=== PATIENT | male | born 1965 | race Caucasian/White ===

== ENCOUNTER 2021-08-09 17:38 | Observation (INO) | payer BC, SELFPAY ==
--- NOTE | 2021-08-09 17:40 | ECG_ITS ---
[facility] Test Date: 2021-08-09 Pat Name: DONAVON SUMMERS Department: Room: Gender: Male [employer] Dean: : 1965 Requested By: Sweetie Stinson Order Number: [id number] Frankel MD: Mendoza Akins M.D. Measurements Intervals [place] Rate: P: TX: QRS: QRSD: T: QT: QTc: Interpretive Statements SINUS TACHYCARDIA No previous ECG available for comparison Electronically Signed On 08-09-2021 21:01:55 CDT by Mendoza Akins M.D. [id number]
--- NOTE | 2021-08-09 17:40 | XRR_ITS ---
PROCEDURE INFORMATION: Exam: XR Chest Exam date and time: 08/09/2021 5:40 PM Age: 56 years old Clinical indication: Pain; Chest pressure; Additional info: Chest pain TECHNIQUE: Imaging protocol: XR of the chest. Views: 1 view. COMPARISON: No relevant prior studies available. FINDINGS: Lungs: Unremarkable. No consolidation. Pleural spaces: Unremarkable. No pleural effusion. No pneumothorax. Heart/Mediastinum: Unremarkable. No cardiomegaly. Bones/joints: Unremarkable. XR/XR chest 1V portable [id number] IMPRESSION: No acute findings.
[2021-08-09 17:43] VITALS: TEMP 37.7; BMI 38.7
--- NOTE | 2021-08-09 17:49 | W.ED.GENADLT ---
Documented by User: Sweetie Stinson MD 08/10/21 11:08 HPI - General Adult General: Chief complaint: Chest Pain Stated complaint: CHEST PAIN Time Seen by Provider: 08/09/21 17:40 History of Present Illness: Patient is a 56-year-old male with a history of CAD status post stent x1 presents emergency room with generalized weakness, abdominal aches and chest pain. Patient tells me around 1030 this morning, he began experiencing generalized abdominal cramps. Patient has 2 episodes of nausea without any emesis. Patient report mild diaphoresis since 3 PM, patient has had right sided chest pain radiating towards the left. Patient still complains of persistent chest pain subsequently EMS was brought to the emergency room. Patient still has generalized body ache. Patient thinks that may have come down with a flu. Patient reports 2 episodes of loose stool. Denies any vomiting or decreased p.o. intake. 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 Denies any pleuritic chest pain, hemoptysis, hematemesis. Patient denies any melena hematochezia or other complaints at this time. In route, patient received 1 dose of nitro which significantly decreased patient's blood pressure. Patient received also aspirin and fentanyl for pain control by EMS. Onset: at 10:30am Duration: 7 hrs Location:home Severity:moderate Associated symptoms: Reports chest pain and nausea; Deny dyspnea, rash, palpitations or vomiting Review of Systems Const: Reports: other (+generalized weakness); Denies: fever(s) or chills Eyes: Denies: change in vision ENMT: Denies: mouth pain Card: Reports: chest pain; Denies: palpitations Resp: Denies: dyspnea or non-productive cough GI: Reports: abdominal pain and nausea; Denies: vomiting or diarrhea : Denies: dysuria Musc: Denies: extremity pain Skin/Breast: Denies: rash or new lesions Neuro: Denies: weakness in extremities Psych: Reports: other (Normal mood) Cliff/Lymph: Denies: easy bruising PFS ED PFSH: Medical History (Updated 08/11/21 @ 00:00 by ) Acute non-ST elevation myocardial infarction (NSTEMI) CAD (coronary artery disease) Chest pain DM type 2 (diabetes mellitus, type 2) Gastroenteritis Generalized weakness Injury of left rotator cuff Ketonuria Nausea NSAID long-term use Sepsis Troponin level elevated Surgical History History of coronary artery stent placement Physical Exam Const: COMMON NORMALS: alert HENMT: COMMON NORMALS: atraumatic HEAD & SCALP: atraumatic MOUTH: moist mucous membranes not abnormal Eye: COMMON NORMALS: EOMs intact bilaterally and conjunctivae normal CONJUNCTIVA: Yes conjunctivae normal Neck/C-Spine: COMMON NORMALS: full ROM and supple Resp: COMMON NORMALS: normal respiratory effort and clear to auscultation bilaterally AUSCULTATION: clear to auscultation bilaterally Cardio: COMMON NORMALS: regular rate RATE: regular rate GI: COMMON NORMALS: Soft to palpation and non-tender PALPATION: Yes Soft to palpation Extremity: COMMON NORMALS: full ROM Neuro: SENSORIUM/ORIENTATION: Yes alert MOTOR EXAM: No Abnormal motor strength present and Other motor observations present (no focal motor deficits) Psych: COMMON NORMALS: speech normal SPEECH: Yes normal speech MOOD & AFFECT: Yes euthymic mood Course Vital Signs: Vital signs: Vital Signs Temperature 98.1 F 08/10/21 14:23 Pulse Rate 82 08/10/21 14:23 Respiratory Rate 18 08/10/21 14:23 Blood Pressure 109/68 08/10/21 14:23 Pulse Oximetry 96 08/10/21 14:23 [facility] - General Adult Medical Decision Making 56-year-old male presenting to the emergency room for evaluation of abdominal cramps, generalized body ache, and chest pain. On physical exam, patient has no focal findings. 2+ radial pulses bilaterally. Patient not actively complaining of chest pain. White count of 18.9. No baseline leukocytosis for comparison. Patient did not take any prednisone or has chronic issues. Patient is also found to have mild anion gap on blood work. CT x-ray of the chest negative for any signs of pneumonia. CT abdomen pelvis did not show any signs of acute pathology. D-dimer within normal limit. It is unclear what the source of leukocytosis. Case signed out to Dr. Foley pending Covid and influenza and reassessment Lab Data : 08/10/21 03:45 08/10/21 03:45 Radiology Impressions Chest X-Ray 08/09/21 19:08 IMPRESSION: Lungs are clear. Abdomen/Pelvis CT 08/09/21 19:56 IMPRESSION: 1. Fatty liver 2. Other chronic findings as described above. Laboratory Results WBC 18.9 10^3/uL (4.0-10.0) H 08/09/21 17: RBC 5.50 10^6/uL (4.1-5.3) H 08/09/21 17:30 Hgb 15.9 g/dL (11.7-16.6) 08/09/21 17: Hct 46.9 % (42.0-52.0) 08/09/21: MCV 85.3 fl (80-94) 08/09/21: MCH 28.9 pg (28.0-34.0) 08/09/21: MCHC 33.9 g/dL (30.0-36.0) 08/09/21: RDW 12.5 % (12.1-15.1) 08/09/21: Plt Count 234 10^3/cmm (130-400) 08/09/21: MPV 11.4 fL (7.4-10.4) H 08/09/21 17: Neut % (Auto) 93.1 % 08/09/21 17: Lymph % (Auto) 3.5 % 08/09/21 17: [place] % (Auto) 2.6 % 08/09/21: Eos % (Auto) 0.1 % 08/09/21: Baso % (Auto) 0.3 % 08/09/21: Neut # (Auto) 17.60 10^3/uL (1.8-7.7) H 08/09/21 17: Lymph # (Auto) 0.7 10^3/uL (0.8-4.8) L 08/09/21 17:30 [place] # (Auto) 0.5 10^3/uL (0.2-0.9) 08/09/21 17: Eos # (Auto) 0.0 10^3/uL (0.0-0.8) 08/09/21 17: Baso # (Auto) 0.1 10^3/uL (0.0-0.1) 08/09/21 17: Nucleated RBC % (auto) 0 % 03/14/22 17:30 Nucleated RBCs # 0.0 /100WBC 08/09/21 17:30 D-Dimer 0.29 ug/mIFEU (0-0.59) 08/09/21 17:30 Sodium 137 mmol/L (136-145) 08/09/21 17:30 Sodium Cancelled 08/09/21 17:30 Potassium 4.6 mmol/L (3.5-5.1) 08/09/21 17:30 Potassium Cancelled 08/09/21 17:30 Chloride 101 mmol/L (98-107) 08/09/21 17:30 Chloride Cancelled 08/09/21 17:30 Carbon Dioxide 17 mmol/L (22-29) L 08/09/21 17:30 Carbon Dioxide Cancelled 08/09/21 17:30 Anion Gap 23.6 (5-19) H 08/09/21 17:30 Anion Gap Cancelled 08/09/21 17:30 BUN 24 mg/dL (6-20) H 08/09/21 17:30 BUN Cancelled 08/09/21 17:30 Creatinine 1.0 mg/dL (0.7-1.2) 08/09/21 17:30 Creatinine Cancelled 08/09/21 17:30 GFR Calculation 77.0 mL/min (90-130) L 08/09/21 17:30 GFR Calculation Cancelled 08/09/21 17:30 Glucose 286 mg/dL (65-115) H 08/09/21 17:30 Glucose Cancelled 08/09/21 17:30 Estimat Average Glucose 180 08/09/21 17:30 Hemoglobin A1c 7.9 % (4.0-6.0) H 08/09/21 17:30 Calculated Osmolality 298 mOsm/kg (285-295) H 08/09/21 17:30 Calculated Osmolality Cancelled 08/09/21 17:30 Lactic Acid 1.8 mmol/L (0.5-2.2) 08/09/21 23:18 Calcium 9.0 mg/dL (8.5-10.5) 08/09/21 17:30 Calcium Cancelled 08/09/21 17:30 Total Bilirubin 0.9 mg/dL (0.15-1.2) 08/09/21 17:30 AST 19 U/L (0-40) 08/09/21 17:30 ALT 27 U/L (0-41) 08/09/21 17:30 Alkaline Phosphatase 48 IU/L (40-130) 08/09/21 17:30 Creatine Kinase 217 U/L (39-308) 08/09/21 23:18 Troponin T Baseline 9 ng/L (0-15) 08/09/21 17:30 Troponin T 120 Minute 15.22 ng/L (0-15) H 08/09/21 20:50 Delta Troponin T 6.22 ABS# (0-10) 08/09/21 20:50 Troponin T Hi Sens 6Hr 23.89 ng/L (0-15) H 08/09/21 23:18 Troponin T Hi Sens 6Hr Delta 14.89 ng/L (0-12) H* 08/09/21 23:18 Total Protein 7.2 g/dL (6.6-8.7) 08/09/21 17:30 Albumin 4.4 g/dL (3.5-5.2) 08/09/21 17:30 Globulin 2.8 g/dL (1.3-4.6) 08/09/21 17:30 Lipase 48 U/L (13-60) 08/09/21 17:30 Urine Color Yellow (Yellow) 08/09/21 18:51 Urine Appearance Clear (CLEAR) 08/09/21 18:51 Urine pH 5 (5-7) 08/09/21 18:51 Ur Specific [place] 1.020 (1.005-1.030) 08/09/21 18:51 Urine Protein Neg (Negative) 08/09/21 18:51 Urine Glucose (UA) 4+ (Normal) H 08/09/21 18:51 Urine Ketones 1+ (Negative) H 08/09/21 18:51 Urine Blood Neg (Negative) 08/09/21 18:51 Urine Nitrate Negative (Negative) 08/09/21 18:51 Urine Bilirubin Neg (Negative) 08/09/21 18:51 Urine Urobilinogen Norm mg/dL (Negative) 08/09/21 18:51 Ur Leukocyte Esterase Negative (Negative) 08/09/21 18:51 Nasal Influ A H1 2008 PCR Not detected (NOT DETECT) 08/09/21 17:52 Serum Ketones Negative (Negative) 08/09/21 23:18 Coronavirus 229E (PCR) Not detected (NOT DETECT) 08/09/21 17:52 Influenza A (H1) PCR Not detected (NOT DETECT) 08/09/21 17:52 Influenza A (H3) PCR Not detected (NOT DETECT) 08/09/21 17:52 Influenza Type A (PCR) Not detected (NOT DETECT) 08/09/21 17:52 Influenza Type B (PCR) Not detected (NOT DETECT) 08/09/21 17:52 SARS-CoV-2 (PCR) Not detected (NOT DETECT) 08/09/21 17:52 Imaging Data Other Imaging: Radiologist's impression: [facility] [address] [address] [address] Scan Report Signed Patient: Jorge Zazueta Unit #: [id number] : 1965 Age/Sex: 56 / M ADM Date: 08/09/21 Loc: ER Room/Bed: Attending Dr: Ordering Provider/Ordering MD: Sweetie Stinson MD Date of Service: 08/09/21 Procedure(s): CT abdomen pelvis w con* [id number] Accession Number(s): [id number] Report Number: [id number] PROCEDURE INFORMATION: Exam: CT Abdomen And Pelvis With Contrast Exam date and time: 08/09/2021 7:56 PM Age: 56 years old Clinical indication: Abdominal pain; Prior surgery; Surgery date: 6+ months; Surgery type: Appy; Patient HX: Epigastric pain x 1 day; Additional info: Eval for infection TECHNIQUE: Imaging protocol: Computed tomography of the abdomen and pelvis with contrast. Radiation optimization: All CT scans at this facility use at least one of these dose optimization techniques: automated exposure control; mA and/or kV adjustment per patient size (includes targeted exams where dose is matched to clinical indication); or iterative reconstruction. Contrast material: OMNI 300; Contrast volume: 95 ml; Contrast route: INTRAVENOUS (IV);? COMPARISON: CR (CHEST, ) 08/09/2021 6:26 PM RADIATION DOSE METRICS: Total DLP (mGy-cm): 2016.78 FINDINGS: Lungs: There is calcified granuloma in the right lower lobe. Liver: There is a diffuse decrease in hepatic parenchymal density, consistent with mild fatty infiltration. There is no focal abnormality within the liver. Gallbladder and bile ducts: The gallbladder is normal. Pancreas: The pancreas is normal. Spleen: The spleen is normal. Adrenal glands: The adrenal glands are normal. Kidneys and ureters: The kidneys are normal. There is no evidence of hydronephrosis. There is no evidence of renal or ureteral calcifications. Stomach and bowel: Moderate diverticulosis is present in the distal colon. There is no evidence of colitis/diverticulitis. Appendix: There has been an appendectomy. Intraperitoneal space: There is no evidence of free intraperitoneal fluid. Vasculature: Incidental note is made of a retroaortic left renal vein. The aorta is normal. The aorta demonstrates mild atherosclerotic calcification. There is no evidence of an abdominal aortic aneurysm. Lymph nodes: There is no evidence of lymphadenopathy. Urinary bladder: Unremarkable as visualized. Reproductive: Unremarkable as visualized. Bones/joints: Multilevel lumbar stenosis. The lumbar spine demonstrates moderate degenerative changes at multiple levels. Soft tissues: There is a small umbilical hernia containing only fat. CT/CT abdomen pelvis w con* [id number] IMPRESSION: 1. Fatty liver 2. Other chronic findings as described above. ? Dictated By: Donavan Smith Signed By: Donavan Smith Signed Date/Time: 08/09/212134 DD/ [address] [address] XRay Report Signed Patient: Jorge Zazueta Unit #: [id number] : 1965 Age/Sex: 56 / M ADM Date: 08/09/21 Loc: ER Room/Bed: Attending Dr: Ordering Provider/Ordering MD: Sweetie Stinson MD Date of Service: 08/09/21 Procedure(s): XR chest 2V* [id number] Accession Number(s): [id number] Report Number: [id number] PROCEDURE INFORMATION: Exam: XR Chest Exam date and time: 08/09/2021 7:08 PM Age: 56 years old Clinical indication: Angina; Additional info: Please do a 2 view chest TECHNIQUE: Imaging protocol: XR of the chest. Views: 2 views. COMPARISON: CR (CHEST, ) 08/09/2021 4:53 PM FINDINGS: Lungs: Right lower lobe calcified granuloma. Pleural spaces: Unremarkable. No pleural effusion. No pneumothorax. Heart/Mediastinum: Unremarkable. No cardiomegaly. Bones/joints: Unremarkable. XR/XR chest 2V* [id number] IMPRESSION: Lungs are clear. ? Dictated By: Jorge Trevizo MD Signed By: Jorge Trevizo MD Signed Date/Time: 08/09/21 1937 DD/ [address] [address] XRay Report Signed Patient: Jorge Zazueta Unit #: [id number] : 1965 Age/Sex: 56 / M ADM Date: 08/09/21 Loc: ER Room/Bed: Attending Dr: Ordering Provider/Ordering MD: Sweetie Stinson MD Date of Service: 08/09/21 Procedure(s): XR chest 1V portable [id number] Accession Number(s): [id number] Report Number: [id number] PROCEDURE INFORMATION: Exam: XR Chest Exam date and time: 08/09/2021 5:40 PM Age: 56 years old Clinical indication: Pain; Chest pressure; Additional info: Chest pain TECHNIQUE: Imaging protocol: XR of the chest. Views: 1 view. COMPARISON: No relevant prior studies available. FINDINGS: Lungs: Unremarkable. No consolidation. Pleural spaces: Unremarkable. No pleural effusion. No pneumothorax. Heart/Mediastinum: Unremarkable. No cardiomegaly. Bones/joints: Unremarkable. XR/XR chest 1V portable [id number] IMPRESSION: No acute findings. ? Dictated By: Jorge Trevizo MD Signed By: Jorge Trevizo MD Signed Date/Time: 08/09/21 1834 DD/ 1740 Discharge Plan Discharge Patient Disposition: Placed in Observation Admit Provider: Luis Huntley Clinical Impression: Generalized weakness, Chest pain, Nausea, Acute non-ST elevation myocardial infarction (NSTEMI) Discharge Diet: Cardiac Discharge Activity: Increase activity as tolerated Sign Out Sign Out Data: Patient Sign Out occurred on 08/09/21 at 23:24. Patient's care was discussed, and care was transferred from to Sulaiman Foley MD. Post-Handoff Eval: See MDM Coding Level of Care Code ED Landscape Architecture Teacher for Chg Fwd Exam Comprehensive Documented by User: Sulaiman Foley MD 08/13/21 07:56 HPI - General Adult General: Chief complaint: Chest Pain Stated complaint: CHEST PAIN Time Seen by Provider: 08/09/21 17:40 [facility] ED PFSH: Medical History (Updated 08/11/21 @ 00:00 by ) Acute non-ST elevation myocardial infarction (NSTEMI) CAD (coronary artery disease) Chest pain DM type 2 (diabetes mellitus, type 2) Gastroenteritis Generalized weakness Injury of left rotator cuff Ketonuria Nausea NSAID long-term use Sepsis Troponin level elevated Surgical History History of coronary artery stent placement Course Vital Signs: Vital signs: Vital Signs Temperature 98.1 F 08/10/21 14:23 Pulse Rate 82 08/10/21 14:23 Respiratory Rate 18 08/10/21 14:23 Blood Pressure 109/68 08/10/21 14:23 Pulse Oximetry 96 08/10/21 14:23 [facility] - General Adult Medical Decision Making 56-year-old male presenting to the emergency room for evaluation of abdominal cramps, generalized body ache, and chest pain. On physical exam, patient has no focal findings. 2+ radial pulses bilaterally. Patient not actively complaining of chest pain. White count of 18.9. No baseline leukocytosis for comparison. Patient did not take any prednisone or has chronic issues. Patient is also found to have mild anion gap on blood work. CT x-ray of the chest negative for any signs of pneumonia. CT abdomen pelvis did not show any signs of acute pathology. D-dimer within normal limit. It is unclear what the source of leukocytosis. Case signed out to Dr. Foley pending Covid and influenza and reassessment - Patient care handoff received from Dr. Stinson. I personally saw and evaluated the patient. - Very mixed picture regarding labs and I did follow-up on additional laboratory studies. Lactate is normal and serum ketones normal. The patient's 6-hour delta troponin is 14.89 which is above the cutoff concerning for NSTEMI. - Aspirin given - Discussed the results of ED evaluation with the patient including need for hospitalization for further assessment of heart. - Discussed case with hospitalist service and patient to be admitted to observation. At his request additionally I did order a VBG. Sulaiman Foley MD Emergency Medicine Lab Data : 08/10/21 03:45 08/10/21 03:45 Radiology Impressions Chest X-Ray 08/09/21 19:08 IMPRESSION: Lungs are clear. Abdomen/Pelvis CT 08/09/21 19:56 IMPRESSION: 1. Fatty liver 2. Other chronic findings as described above. Laboratory Results WBC 18.9 10^3/uL (4.0-10.0) H 08/09/21 17:30 RBC 5.50 10^6/uL (4.1-5.3) H 08/09/21 17:30 Hgb 15.9 g/dL (11.7-16.6) 08/09/21 17:30 Hct 46.9 % (42.0-52.0) 08/09/21 17:30 MCV 85.3 fl (80-94) 08/09/21 17:30 MCH 28.9 pg (28.0-34.0) 08/09/21 17:30 MCHC 33.9 g/dL (30.0-36.0) 08/09/21 17:30 RDW 12.5 % (12.1-15.1) 08/09/21 17:30 Plt Count 234 10^3/cmm (130-400) 08/09/21 17:30 MPV 11.4 fL (7.4-10.4) H 08/09/21 17:30 Neut % (Auto) 93.1 % 08/09/21 17:30 Lymph % (Auto) 3.5 % 08/09/21 17:30 [place] % (Auto) 2.6 % 08/09/21 17:30 Eos % (Auto) 0.1 % 08/09/21 17: Baso % (Auto) 0.3 % 08/09/21 17:30 Neut # (Auto) 17.60 10^3/uL (1.8-7.7) H 08/09/21 17:30 Lymph # (Auto) 0.7 10^3/uL (0.8-4.8) L 08/09/21 17:30 [place] # (Auto) 0.5 10^3/uL (0.2-0.9) 08/09/21 17:30 Eos # (Auto) 0.0 10^3/uL (0.0-0.8) 08/09/21 17:30 Baso # (Auto) 0.1 10^3/uL (0.0-0.1) 08/09/21 17:30 Nucleated RBC % (auto) 0 % 08/09/21 17: Nucleated RBCs # 0.0 /100WBC 08/09/21 17:30 D-Dimer 0.29 ug/mIFEU (0-0.59) 08/09/21 17:30 Sodium 137 mmol/L (136-145) 08/09/21 17:30 Sodium Cancelled 08/09/21 17:30 Potassium 4.6 mmol/L (3.5-5.1) 08/09/21 17:30 Potassium Cancelled 08/09/21 17:30 Chloride 101 mmol/L (98-107) 08/09/21 17:30 Chloride Cancelled 08/09/21 17:30 Carbon Dioxide 17 mmol/L (22-29) L 08/09/21 17:30 Carbon Dioxide Cancelled 08/09/21 17:30 Anion Gap 23.6 (5-19) H 08/09/21 17:30 Anion Gap Cancelled 08/09/21 17:30 BUN 24 mg/dL (6-20) H 08/09/21 17:30 BUN Cancelled 08/09/21 17:30 Creatinine 1.0 mg/dL (0.7-1.2) 08/09/21 17:30 Creatinine Cancelled 08/09/21 17:30 GFR Calculation 77.0 mL/min (90-130) L 08/09/21 17:30 GFR Calculation Cancelled 08/09/21 17:30 Glucose 286 mg/dL (65-115) H 08/09/21 17:30 Glucose Cancelled 08/09/21 17:30 Estimat Average Glucose 180 08/09/21 17:30 Hemoglobin A1c 7.9 % (4.0-6.0) H 08/09/21 17:30 Calculated Osmolality 298 mOsm/kg (285-295) H 08/09/21 17:30 Calculated Osmolality Cancelled 08/09/21 17:30 Lactic Acid 1.8 mmol/L (0.5-2.2) 08/09/21 23:18 Calcium 9.0 mg/dL (8.5-10.5) 08/09/21 17:30 Calcium Cancelled 08/09/21 17:30 Total Bilirubin 0.9 mg/dL (0.15-1.2) 08/09/21 17:30 AST 19 U/L (0-40) 08/09/21 17:30 ALT 27 U/L (0-41) 08/09/21 17:30 Alkaline Phosphatase 48 IU/L (40-130) 08/09/21 17:30 Creatine Kinase 217 U/L (39-308) 08/09/21 23:18 Troponin T Baseline 9 ng/L (0-15) 08/09/21 17:30 Troponin T 120 Minute 15.22 ng/L (0-15) H 08/09/21 20:50 Delta Troponin T 6.22 ABS# (0-10) 08/09/21 20:50 Troponin T Hi Sens 6Hr 23.89 ng/L (0-15) H 08/09/21 23:18 Troponin T Hi Sens 6Hr Delta 14.89 ng/L (0-12) H* 08/09/21 23:18 Total Protein 7.2 g/dL (6.6-8.7) 08/09/21 17:30 Albumin 4.4 g/dL (3.5-5.2) 08/09/21 17:30 Globulin 2.8 g/dL (1.3-4.6) 08/09/21 17:30 Lipase 48 U/L (13-60) 08/09/21 17:30 Urine Color Yellow (Yellow) 08/09/21 18:51 Urine Appearance Clear (CLEAR) 08/09/21 18:51 Urine pH 5 (5-7) 08/09/21 18:51 Ur Specific [place] 1.020 (1.005-1.030) 08/09/21 18:51 Urine Protein Neg (Negative) 08/09/21 18:51 Urine Glucose (UA) 4+ (Normal) H 08/09/21 18:51 Urine Ketones 1+ (Negative) H 08/09/21 18:51 Urine Blood Neg (Negative) 08/09/21 18:51 Urine Nitrate Negative (Negative) 08/09/21 18:51 Urine Bilirubin Neg (Negative) 08/09/21 18:51 Urine Urobilinogen Norm mg/dL (Negative) 08/09/21 18:51 Ur Leukocyte Esterase Negative (Negative) 08/09/21 18:51 Nasal Influ A H1 2009 PCR Not detected (NOT DETECT) 08/09/21 17:52 Serum Ketones Negative (Negative) 08/09/21 23:18 Coronavirus 229E (PCR) Not detected (NOT DETECT) 08/09/21 17:52 Influenza A (H1) PCR Not detected (NOT DETECT) 08/09/21 17:52 Influenza A (H3) PCR Not detected (NOT DETECT) 08/09/21 17:52 Influenza Type A (PCR) Not detected (NOT DETECT) 08/09/21 17:52 Influenza Type B (PCR) Not detected (NOT DETECT) 08/09/21 17:52 SARS-CoV-2 (PCR) Not detected (NOT DETECT) 08/09/21 17:52 Discharge Plan Discharge Patient Disposition: Placed in Observation Admit Provider: Luis Huntley Clinical Impression: Generalized weakness, Chest pain, Nausea, Acute non-ST elevation myocardial infarction (NSTEMI) Discharge Diet: Cardiac Discharge Activity: Increase activity as tolerated Sign Out Sign Out Data: Patient Sign Out occurred on 08/09/21 at 23:24. Patient's care was discussed, and care was transferred from to Sulaiman Foley MD. Post-Handoff Eval: See MDM Coding Level of Care Code ED Landscape Architecture Teacher for Chg Fwd Exam Comprehensive
[2021-08-09 17:51] VITALS: BP 100/67; PULSE 107; RESP 16; TEMP 37.7; O2SAT 93
[2021-08-09 17:57] LABS: Basophils # 0.1 10^3/uL (0.0-0.1); Basophils % 0.3 %; Eosinophils % 0.1 %; Hematocrit 46.9 % (42.0-52.0); Hemoglobin 15.9 g/dL (11.7-16.6); Lymphocytes # 0.7 10^3/uL (0.8-4.8); Lymphocytes % 3.5 %; Mean Corpuscular HGB Conc 33.9 g/dL (30.0-36.0); Mean Corpuscular Hemoglobin 28.9 pg (28.0-34.0); Mean Corpuscular Volume 85.3 fl (80-94); Mean Platelet Volume 11.4 fL (7.4-10.4); Monocytes # 0.5 10^3/uL (0.2-0.9); Monocytes % 2.6 %; Neutrophils % 93.1 %; Nucleated Red Blood Cells % 0 %; Platelet Count 234 10^3/cmm (130-400); Red Cell Distribution Width 12.5 % (12.1-15.1); White Blood Count 18.9 10^3/uL (4.0-10.0)
[2021-08-09] MEDS: sodium chloride 0.9% 1,000 ML 999 ML IV (18:02)
[2021-08-09] MEDS: ondansetron 2 mg/ML SDV 2 mL 4 MG IVP (18:02)
[2021-08-09 18:30] LABS: Troponin(5th) Baseline 9 ng/L (0-15)
[2021-08-09 18:55] LABS: D Dimer 0.29 ug/mIFEU (0-0.59)
[2021-08-09 19:04] LABS: Add Urine Microscopic? NO; Charge for UA Resulting for Rev
--- NOTE | 2021-08-09 19:08 | XRR_ITS ---
PROCEDURE INFORMATION: Exam: XR Chest Exam date and time: 08/09/2021 7:08 PM Age: 56 years old Clinical indication: Angina; Additional info: Please do a 2 view chest TECHNIQUE: Imaging protocol: XR of the chest. Views: 2 views. COMPARISON: CR (CHEST, ) 08/09/2021 4:53 PM FINDINGS: Lungs: Right lower lobe calcified granuloma. Pleural spaces: Unremarkable. No pleural effusion. No pneumothorax. Heart/Mediastinum: Unremarkable. No cardiomegaly. Bones/joints: Unremarkable. XR/XR chest 2V* [id number] IMPRESSION: Lungs are clear.
[2021-08-09 19:09] LABS: Bilirubin Urine Neg (Negative); Blood Urine Neg (Negative); Glucose Urine UA 4+ (Normal); Ketones Urine 1+ (Negative); Leukocyte Esterase Urine Negative (Negative); Nitrate Urine Negative (Negative); Protein Urine Neg (Negative); Urine Appearance Clear (CLEAR); Urine Color Yellow (Yellow); Urobilinogen Urine Norm (Negative); pH Urine 5 (5-7)
[2021-08-09 19:17] LABS: Alanine Aminotransferase 27 U/L (0-41); Albumin Level 4.4 g/dL (3.5-5.2); Aspartate Amino Transferase 19 U/L (0-40); Carbon Dioxide 17 mmol/L (22-29); Total Bilirubin 0.9 mg/dL (0.15-1.2)
[2021-08-09 19:18] LABS: Alkaline Phosphatase 48 IU/L (40-130); Anion Gap 23.6 (5-19); Blood Urea Nitrogen 24 mg/dL (6-20); Chloride 101 mmol/L (98-107); Globulin 2.8 g/dL (1.3-4.6); Glucose 286 mg/dL (65-115); Lipase 48 U/L (13-60); Osmolality Calculated 298 mOsm/kg (285-295); Potassium 4.6 mmol/L (3.5-5.1); Sodium 137 mmol/L (136-145); Total Protein 7.2 g/dL (6.6-8.7)
--- NOTE | 2021-08-09 19:40 | ECG_ITS ---
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 Measurements Intervals [place] Rate: 98 P: 46 AK: 167 QRS: 68 QRSD: 94 T: 84 QT: 332 QTc: 425 Interpretive Statements SINUS RHYTHM NONSPECIFIC T-WAVE ABNORMALITY Compared to ECG 08/09/2021 16:50:05 T-wave abnormality now present Electronically Signed On 08-09-2021 21:11:51 CDT by Mendoza Akins M.D. [id number]
--- NOTE | 2021-08-09 19:56 | CTR_ITS ---
PROCEDURE INFORMATION: Exam: CT Abdomen And Pelvis With Contrast Exam date and time: 08/09/2021 7:56 PM Age: 56 years old Clinical indication: Abdominal pain; Prior surgery; Surgery date: 6+ months; Surgery type: Appy; Patient HX: Epigastric pain x 1 day; Additional info: Eval for infection TECHNIQUE: Imaging protocol: Computed tomography of the abdomen and pelvis with contrast. Radiation optimization: All CT scans at this facility use at least one of these dose optimization techniques: automated exposure control; mA and/or kV adjustment per patient size (includes targeted exams where dose is matched to clinical indication); or iterative reconstruction. Contrast material: OMNI 300; Contrast volume: 95 ml; Contrast route: INTRAVENOUS (IV); COMPARISON: CR (CHEST, ) 08/09/2021 6:26 PM RADIATION DOSE METRICS: Total DLP (mGy-cm): 2016.78 FINDINGS: Lungs: There is calcified granuloma in the right lower lobe. Liver: There is a diffuse decrease in hepatic parenchymal density, consistent with mild fatty infiltration. There is no focal abnormality within the liver. Gallbladder and bile ducts: The gallbladder is normal. Pancreas: The pancreas is normal. Spleen: The spleen is normal. Adrenal glands: The adrenal glands are normal. Kidneys and ureters: The kidneys are normal. There is no evidence of hydronephrosis. There is no evidence of renal or ureteral calcifications. Stomach and bowel: Moderate diverticulosis is present in the distal colon. There is no evidence of colitis/diverticulitis. Appendix: There has been an appendectomy. Intraperitoneal space: There is no evidence of free intraperitoneal fluid. Vasculature: Incidental note is made of a retroaortic left renal vein. The aorta is normal. The aorta demonstrates mild atherosclerotic calcification. There is no evidence of an abdominal aortic aneurysm. Lymph nodes: There is no evidence of lymphadenopathy. Urinary bladder: Unremarkable as visualized. Reproductive: Unremarkable as visualized. Bones/joints: Multilevel lumbar stenosis. The lumbar spine demonstrates moderate degenerative changes at multiple levels. Soft tissues: There is a small umbilical hernia containing only fat. CT/CT abdomen pelvis w con* [id number] IMPRESSION: 1. Fatty liver 2. Other chronic findings as described above.
[2021-08-09] MEDS: iohexol 300 mg/mL 100 mL Btl IV (20:39)
[2021-08-09 20:46] VITALS: BP 107/71; PULSE 97; RESP 16; TEMP 37.2; O2SAT 95
[2021-08-09 21:16] LABS: Troponin 5 2HR 15.22 ng/L (0-15)
[2021-08-09 21:17] LABS: Troponin 5 2HR Delta 6.22 ABS# (0-10)
[2021-08-09 23:28] LABS: Adenovirus Not Detected (NOT DETECT); Chlamydia Pneumoniae Not Detected (NOT DETECT); Coronavirus 229E,HKU1,NL63,OC4 Not Detected (NOT DETECT); Human Metapneumovirus Not Detected (NOT DETECT); Human Rhinovirus/Enterovirus Not Detected (NOT DETECT); Influenza A Not Detected (NOT DETECT); Influenza A H1 Not Detected (NOT DETECT); Influenza A H1-2009 Not Detected (NOT DETECT); Influenza A H3 Not Detected (NOT DETECT); Influenza B Not Detected (NOT DETECT); Mycoplasma Pneumoniae Not Detected (NOT DETECT); Parainfluenza Virus Type 1 Not Detected (NOT DETECT); Parainfluenza Virus Type 2 Not Detected (NOT DETECT); Parainfluenza Virus Type 3 Not Detected (NOT DETECT); Parainfluenza Virus Type 4 Not Detected (NOT DETECT); Respiratory Syncytial Virus A Not Detected (NOT DETECT); Respiratory Syncytial Virus B Not Detected (NOT DETECT); SARS-COV-2 Not Detected (NOT DETECT)
[2021-08-09 23:34] LABS: Influenza A Not Detected (NOT DETECT); Influenza A H1 Not Detected (NOT DETECT); Influenza A H1-2009 Not Detected (NOT DETECT); Influenza A H3 Not Detected (NOT DETECT); Influenza B Not Detected (NOT DETECT); Results from Genmark
--- NOTE | 2021-08-09 23:40 | ECG_ITS ---
[facility] Test Date: 2021-08-09 Pat Name: Jorge Zazueta Department: Room: Gender: Male [employer] K[employer] Runner: : 1965 Requested By: Sweetie Stinson Order Number: [id number] Frankel MD: Mendoza Akins M.D. Measurements Intervals [place] Rate: 100 P: 38 MS: 154 QRS: 66 QRSD: 90 T: 83 QT: 334 QTc: 432 Interpretive Statements SINUS TACHYCARDIA NONSPECIFIC T-WAVE ABNORMALITY Compared to ECG 08/09/2021 19:38:40 Sinus rhythm no longer present T-wave abnormality still present Electronically Signed On 08-11-2021 20:29:15 CDT by Mendoza Akins M.D. [email or web address]
[2021-08-09 23:43] LABS: Troponin 5 6HR 23.89 ng/L (0-15)
[2021-08-09 23:46] LABS: Lactic Sepsis W/Reflex 1.8 mmol/L (0.5-2.2)
[2021-08-09 23:54] LABS: Ketone (Acetest) Serum Negative (Negative)
[2021-08-09 23:55] LABS: Troponin 5 6HR Delta 14.89 ng/L (0-12)
[2021-08-10] VITALS (7 sets, daily range): BP systolic 99–110; BP diastolic 68–73; PULSE 82–95; RESP 10–18; TEMP 36.7–37.2; O2SAT 94–96; BMI 39.0
[2021-08-10] MEDS: aspirin 81 mg Chew Tablet 324 MG PO (00:24)
[2021-08-10 01:35] LABS: Creatine Phosphokinase 217 U/L (39-308)
[2021-08-10 02:19] LABS: Estmated Average Glucose 180; Hemoglobin A1C 7.9 % (4.0-6.0)
--- NOTE | 2021-08-10 02:26 | PM.HP ---
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 He then experienced pain across his chest, sharp, with some radiation to the left arm. Received nitroglycerin in route with decrease in blood pressure. Chest discomfort mild initially in ER. Currently completely resolved. In ER noted troponin abnormality, baseline normal, 2-hour 15.22, 6-hour 23.89. EKG with sinus rhythm, sinus tachycardia 91-107. At presentation temp 99.9 Fahrenheit. D-dimer normal at 0.29. Noted leukocytosis 18.9. Chest x-ray unremarkable. CT abdomen pelvis showed fatty liver, chronic findings (see full report). PCR flu and COVID-19 negative. Other significant labs include bicarb 17, anion gap 23.6, BUN 24, glucose 286. He says he did not take his diabetes medication today as was concerned about the GI symptoms. Urine with 4+ glucose, 1+ ketones. Serum ketones negative. Reports since arriving to the room has had several more episodes of diarrhea. Reports he ate a broccoli salad with creamy dressing he bought at [facility] yesterday. Review of Systems Const: Denies: fever(s), chills, body aches or malaise Eyes: Denies: change in vision or eye redness ENMT: Denies: throat pain, oral sores or ear or mastoid pain Card: Reports: chest pain; Denies: edema, pre-syncope or dyspnea on exertion Resp: Denies: dyspnea, productive cough, change in phlegm color or hemoptysis GI: Reports: nausea, heartburn, diarrhea and GI cramping; Denies: abdominal pain, constipation, hematochezia or melena : Denies: flank pain, difficulty urinating, urinary frequency or hematuria Musc: Denies: back pain, joint swelling or joint redness Skin/Breast: Denies: rash, sores or new lesions Neuro: Denies: headache(s), numbness in extremities, weakness in extremities, dizziness, confusion or seizure-like activity Endo: Denies: polyuria or polydipsia Cliff/Lymph: Denies: easy bleeding or purpura All/Imm: Denies: urticaria, throat swelling or tongue swelling Medications/Allergies Home Medications Medication Instructions Recorded Confirmed Last Taken Type ascorbic acid (vitamin C) 1,000 mg 500 mg PO BID 08/09/21 08/09/21 08/09/21 History tablet (Vitamin C) aspirin 81 mg tablet,delayed 81 mg PO DAILY 08/09/21 08/09/21 08/09/21 History release cholecalciferol (vitamin D3) 25 25 mcg PO DAILY 08/09/21 08/09/21 08/09/21 History mcg (1,000 unit) capsule (Vitamin D3) glimepiride 2 mg tablet 2 mg PO BID 08/09/21 08/09/21 08/09/21 History multivitamin with iron-mineral 1 tab PO DAILY 08/09/21 08/09/21 08/09/21 History nitroglycerin 0.4 mg sublingual 0.4 mg SUBLINGUAL Q5MIN PRN 08/09/21 08/09/21 08/09/21 History tablet pantoprazole 40 mg tablet,delayed 40 mg PO DAILY 08/09/21 08/09/21 08/09/21 History release rosuvastatin 10 mg tablet 10 mg PO DAILY 08/09/21 08/09/21 08/08/21 History sulindac 200 mg tablet 200 mg PO BID 08/09/21 08/09/21 08/09/21 History thiamine HCl (vitamin B1) 250 mg 250 mg PO DAILY 08/09/21 08/09/21 08/09/21 History tablet (Vitamin B-1) valsartan 160 mg tablet 160 mg PO DAILY 08/09/21 08/09/21 08/09/21 History zinc 50 mg tablet 50 mg PO DAILY 08/09/21 08/09/21 08/09/21 History Allergies Allergy/AdvReac Type Severity Reaction Status Date / Time acetaminophen [From NyQuil] Allergy ALGY-Difficulty Verified 08/10/21 01:41 Breathing dextromethorphan Allergy ALGY-Difficulty Verified 08/10/21 01:41 [From NyQuil] Breathing doxylamine [From NyQuil] Allergy ALGY-Difficulty Verified 08/10/21 01:41 Breathing pseudoephedrine [From NyQuil] Allergy ALGY-Difficulty Verified 08/10/21 01:41 Breathing PFSH Acute PFSH: Medical History (Updated 08/10/21 @ 02:34 by Luis Huntley MD) CAD (coronary artery disease) DM type 2 (diabetes mellitus, type 2) Injury of left rotator cuff Surgical History History of coronary artery stent placement Vitals/I&O/Wt Last Vital Signs Temp 99.0 F 08/10/21 01:45 Pulse 91 08/10/21 01:45 Resp 16 08/10/21 01:45 BP 110/72 08/10/21 01:45 Pulse Ox 96 08/10/21 01:45 08/09/21 08/09/21 08/10/21 14:59 22:59 06:59 Intake Total 1000 / 1000 Balance 1000 / 1000 Weight last 48 hrs Weight 123.422 kg Weight 122.47 kg Physical Exam Const: COMMON NORMALS: no acute distress and patient oriented x3 NUTRITIONAL APPEARANCE: overweight HENMT: COMMON NORMALS: oropharynx normal Neck/C-Spine: COMMON NORMALS: no JVD Resp: COMMON NORMALS: normal respiratory effort and clear to auscultation bilaterally AUSCULTATION: clear to auscultation bilaterally Cardio: COMMON NORMALS: no JVD, regular rhythm, S1 normal heart sound present, S2 normal heart sound present and No murmurs present (Cardio) RHYTHM: regular rhythm HEART SOUNDS: S1 normal heart sound present and S2 normal heart sound present GI: COMMON NORMALS: Normal to inspection, nondistended, normoactive bowel sounds present and Soft to palpation PALPATION: Yes Soft to palpation and Yes Tenderness to palpation present (GI) (across upper abdomen) Extremity: COMMON NORMALS: no joint enlargement and no pedal edema Neuro: COMMON NORMALS: patient oriented x3 and moves all extremities Skin: COMMON NORMALS: no rashes or lesions noted GENERAL SKIN EXAM: no rashes or lesions noted Data : 08/09/21 17:30 08/09/21 17:30 Micro: Microbiology 08/09/21 23:18 Blood Culture - Preliminary Blood SPECIMEN COLLECTED 08/09/21 23:15 Blood Culture - Preliminary Blood SPECIMEN COLLECTED A&P Assessment and plan (1) Sepsis: With leukocytosis 18.9, sinus tachycardia 91-107. On presentation also low-grade temp 99.9. Initially unclear source, but has had several episodes of diarrhea since then. Likely GI source. Empirically started on Cipro and Flagyl. Blood cultures were collected. Follow-up. Requested stool studies. Possible gastroenteritis, possible colitis. Possibly after consumption of salad with creamy dressing from [employer] yesterday. Status: Acute (2) Gastroenteritis: Due to sepsis, abdominal pain on presentation, started on antibiotics as above. Discussed with him also possibility of additional NSAID induced gastritis. She has been on sulindac for close to 2 years now. He is going to discuss with his primary doctor consideration of discontinuation of this medication. For now hold. Start on PPI. Consider referral for outpatient EGD for additional assessment of dyspepsia. Status: Acute (3) Chest pain: Noted mild elevation of troponin with rising trend. Will reassess additional level. Assess with TTE. Continue aspirin, statin, beta-hailee. He is chest pain-free. Less likely type I MD, suspect demand ischemia secondary to sepsis, however, he does have risk factors, and would benefit from additional assessment/risk stratification for CAD progression. Depending on sepsis, abdominal symptoms, consider assessment by stress testing predischarge, possibly tomorrow as his heart score is moderate and with known CAD and stenting. Status: Acute (4) Troponin level elevated: As above. Status: Acute (5) Ketonuria: Discussed with him in ER physician. Does have ketonuria. VBG requested for possible mild or early DKA. Metabolic acidosis with bicarb 17, anion gap 23.6. Requested IV hydration, subcutaneous insulin. Will reassess chemistry this morning. Status: Acute (6) NSAID long-term use: Reports has been on sulindac for at least 2 years now. Previously started with history of left rotator cuff injury. Hold for now. He is going to discuss with his primary provider consideration of alternatives to long-term NSAIDs due to risks. Status: Acute Plan DM2: SSI, CCD diet CAD, status post stenting: Continue aspirin, statin, and beta-hailee. Attestations Medical Necessity Statement*: Place in observation for additional assessment of sepsis, chest pain episode, possible mild or early DKA. Coding Level of Care Code Acute Correctional Program Officer for Chg Fwd Exam Comprehensive Diagnoses Sepsis A41.9 Gastroenteritis K52.9 Chest pain R07.9 Troponin level elevated R77.8 Ketonuria R82.4 NSAID long-term use Z79.1
--- NOTE | 2021-08-10 02:30 | USCV_ITS ---
Jorge Zazueta Age: 56 Gender: M : 1965 Exam Date: 08/10/2021 05:43 Ordering Phys: Luis Huntley MD Technologist: OLGA [place] [facility] [place]: ELEVATED TROP, CHEST PAIN BP: 110 / 72 HR: 88 Rhythm: Sinus Technical Quality: Adequate MEASUREMENTS (Male / Female) Normal Values 2D ECHO LV Diastolic Diameter PLAX 3.8 cm 4.2 - 5.9 / 3.9 - 5.3 cm LV Systolic Diameter PLAX 2.3 cm IVS Diastolic Thickness 1.4 cm 0.6 - 1.0 / 0.6 - 0.9 cm IVS Systolic Thickness 2.0 cm LVPW Diastolic Thickness 1.3 cm 0.6 - 1.0 / 0.6 - 0.9 cm LVPW Systolic Thickness 1.7 cm LVOT Diameter 2.0 cm LV Ejection Fraction 2D Teich 71.5 % LV Ejection Fraction MOD 2C 34.6 % LV Ejection Fraction 2C AL 33.3 % LA Diameter 2.9 cm LA Width 3.2 cm LA Height 3.4 cm RA Width 2.4 cm RA Height 4.1 cm Aorta at Sinotubular Diameter 2.6 cm M-MODE Aortic Annulus Diameter 3.7 cm LA Ao Ratio MM 0.8 MV E Point Septal Separation 0.3 cm DOPPLER AV Peak Velocity 126.0 cm/s LVOT Peak Velocity 84.0 cm/s AV Area Cont Eq vti 2.3 cm squared AV Area Cont Eq pk 2.1 cm squared MV Peak Velocity 71.0 cm/s MV Area PHT 3.1 cm squared Mitral E to A Ratio 1.0 MV E' Velocity 32.5 cm/s Mitral E to MV E' Ratio 8.5 Mitral E to LV E' Lateral Ratio 8.4 Mitral E to LV E' Septal Ratio 8.8 TR Peak Velocity 210.4 cm/s TR Peak Gradient 17.7 mmHg TR Mean Velocity 139.3 cm/s TR Mean Gradient 9.0 mmHg TR Velocity Time Integral 33.7 cm TV Peak E Velocity 37.0 cm/s Right Atrial Pressure 3.0 mmHg Pulmonary Artery Systolic Pressu 20.7 mmHg PV Peak Velocity 110.0 cm/s RV Acceleration Time 0.1 s RV Ejection Time 0.2 s RV AcT/ET 0.5 FINDINGS Left Ventricle Normal left ventricular size and systolic function, EF 60% (visual).no regional wall motion abnormalities. Mild left ventricular hypertrophy. Grade I/IV diastolic dysfunction (abnormal relaxation filling pattern), normal to mildly elevated filling pressures. Right Ventricle The right ventricle is normal in size and function. Right Atrium The right atrium is normal in size. Left Atrium Normal left atrial size. Mitral Valve No gross abnormalities noted Aortic Valve No gross abnormalities noted Tricuspid Valve No gross abnormalities noted Pulmonic Valve Pulmonic valve not well visualized. Pericardium No pericardial effusion. Aorta Normal aortic annulus size. CONCLUSIONS Normal left ventricular size and systolic function, EF 60% (visual). No obvious wall motion abnormalities noted. Mild left ventricular hypertrophy. Grade I/IV diastolic dysfunction (abnormal relaxation filling pattern), normal to mildly elevated filling pressures. Possibly normal chamber sizes. No significant pericardial effusion Technically difficult study because of the poor ultrasonic window Dr John Paul Tom MD FACC (Electronically Signed) Final Date: 10 August 2021 19:59 S
[2021-08-10 04:23] LABS: Basophils % 0.2 %; Eosinophils % 0.1 %; Hematocrit 41.6 % (42.0-52.0); Hemoglobin 13.7 g/dL (11.7-16.6); Lymphocytes # 0.9 10^3/uL (0.8-4.8); Lymphocytes % 7.5 %; Mean Corpuscular HGB Conc 32.9 g/dL (30.0-36.0); Mean Corpuscular Hemoglobin 28.8 pg (28.0-34.0); Mean Corpuscular Volume 87.4 fl (80-94); Monocytes # 0.6 10^3/uL (0.2-0.9); Monocytes % 4.9 %; Neutrophils # 9.87 10^3/uL (1.8-7.7); Neutrophils % 86.9 %; Nucleated Red Blood Cells % 0 %; Platelet Count 195 10^3/cmm (130-400); Red Blood Count 4.76 10^6/uL (4.1-5.3); Red Cell Distribution Width 12.7 % (12.1-15.1); White Blood Count 11.4 10^3/uL (4.0-10.0)
[2021-08-10 04:44] LABS: Alanine Aminotransferase 23 U/L (0-41); Albumin Level 3.4 g/dL (3.5-5.2); Alkaline Phosphatase 37 IU/L (40-130); Aspartate Amino Transferase 19 U/L (0-40); Blood Urea Nitrogen 24 mg/dL (6-20); Calcium 8.3 mg/dL (8.5-10.5); Carbon Dioxide 22 mmol/L (22-29); Chloride 104 mmol/L (98-107); Globulin 2.9 g/dL (1.3-4.6); Glucose 209 mg/dL (65-115); Osmolality Calculated 294 mOsm/kg (285-295); Sodium 137 mmol/L (136-145); Total Bilirubin 0.6 mg/dL (0.15-1.2); Total Protein 6.3 g/dL (6.6-8.7)
[2021-08-10] MEDS: ciprofloxacin 400 MG/200 ML PREMIX 200 MG IV (05:57)
[2021-08-10] MEDS: enoxaparin 40 mg/0.4 mL Syringe SUBCUT (05:57)
[2021-08-10] MEDS: sodium chloride 0.45% 1,000 ML 75 ML IV (05:58)
[2021-08-10] MEDS: metroNIDAZOLE IV 500 MG/100 ML PREMIX 100 MG IV (05:59)
[2021-08-10] MEDS: pantoprazole 40 mg SDV IVP (05:59)
[2021-08-10] MEDS: perflutren protein-a microsphr 0.22 mg/mL SDV 3 mL IV (06:18)
--- NOTE | 2021-08-10 10:36 | P.DS_ITS ---
Discharge Providers Date of Admission: 08/10/21 01:25 Date of Discharge: August 10, 2021 Attending Provider at Admission: Luis Huntley Attending Provider at Discharge: Willie Jules MD Diagnoses at Discharge Discharge Diagnosis (1) Sepsis: Status: Acute (2) Gastroenteritis: Status: Acute (3) Chest pain: Status: Acute (4) Troponin level elevated: Status: Acute (5) Ketonuria: Status: Acute (6) NSAID long-term use: Status: Acute Reason for Visit Reason for Visit: CHEST PAIN Hospital Course Hospital Course Note by Dr. 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 He then experienced pain across his chest, sharp, with some radiation to the left arm.? Received nitroglycerin in route with decrease in blood pressure.? Chest discomfort mild initially in ER.? Currently completely resolved.? In ER noted troponin abnormality, baseline normal, 2-hour 15.22, 6-hour 23.89.? EKG with sinus rhythm, sinus tachycardia 91-107.? At presentation temp 99.9 Fahrenheit. D-dimer normal at 0.29. Noted leukocytosis 18.9.? Chest x-ray unremarkable.? CT abdomen pelvis showed fatty liver, chronic findings (see full report). PCR flu and COVID-19 negative. Other significant labs include bicarb 17, anion gap 23.6, BUN 24, glucose 286.? He says he did not take his diabetes medication today as was concerned about the GI symptoms. Urine with 4+ glucose, 1+ ketones.? Serum ketones negative. Reports since arriving to the room has had several more episodes of diarrhea. Reports he ate a broccoli salad with creamy dressing he bought at [facility] yesterday. Discharge summary Patient was admitted for management evaluation of gastroenteritis. CT abdomen pelvis unremarkable. He does not have sepsis. Does not meet sepsis criteria. His blood pressure remained stable after getting IV fluids and bolus on 08/10. Patient was eager to return home. He remained afebrile. Was able to tolerate diet no recurrence of nausea vomiting or diarrhea. His first CBC was hemoconcentrated which showed severe leukocytosis and he no concentration of hemoglobin 15.9. Atypical midepigastric discomfort which she is describing as cramping sensation from right subcostal margin to left costal margin. Troponin trending down, no signs of ischemia or infarction on EKG. He will be discharged home in stable condition. For viral gastroenteritis no need of antibiotics. D- dimer unremarkable Hemoglobin A1c 7.9, he takes glimepiride, will add Metformin. Physical Exam Narrative: Well-hydrated male Saturating well on room air Nontender abdomen Bowel sound present S1, S2 Nonfocal neuro exam Saturating well on room air Not in any active distress Pleasant and cooperative during my evaluation Discharge Data Studies Completed and Pending Completed Studies During Hospitalization Category Date Time Status CT abdomen pelvis w con* [id number] Urgent Cat Scan 08/09/21 19:56 Completed XR chest 1V portable [id number] Urgent Exams 08/09/21 17:40 Completed XR chest 2V* [id number] Stat Exams 08/09/21 19:08 Completed Pending at discharge Category Date Time Status Blood Culture Stat Lab 08/09/21 23:18 Results C DIFF [Clostridioides Difficile PCR] Routine Lab 08/10/21 02:26 Uncollected Complete Blood Count w/Auto AM LABS Lab 08/11/21 04:00 Ordered Complete Blood Count w/Auto AM LABS Lab 08/12/21 04:00 Ordered Complete Blood Count w/Auto AM LABS Lab 08/13/21 04:00 Ordered Comprehensive Metabolic Panel AM LABS Lab 08/11/21 04:00 Ordered Comprehensive Metabolic Panel AM LABS Lab 08/12/21 04:00 Ordered Comprehensive Metabolic Panel AM LABS Lab 08/13/21 04:00 Ordered OVA and Parasites, Conc and PE Routine Lab 08/10/21 02:26 Uncollected Stool Culture, Bacterial [Enteric Bacterial Panel by Lab 08/10/21 02:26 Uncollected PCR] Routine VBG [Venous Blood Gas] Stat Lab 08/10/21 00:49 Ordered CV. echo wo/w contrast [id number] Routine Ultrasound 08/10/21 02:30 Taken Radiology Impressions Chest X-Ray 08/09/21 19:08 IMPRESSION: Lungs are clear. Abdomen/Pelvis CT 08/09/21 19:56 IMPRESSION: 1. Fatty liver 2. Other chronic findings as described above. Laboratory Results WBC 11.4 10^3/uL (4.0-10.0) H 08/10/21 03:45 RBC 4.76 10^6/uL (4.1-5.3) 08/10/21 03:45 Hgb 13.7 g/dL (11.7-16.6) 08/10/21 03:45 Hct 41.6 % (42.0-52.0) L 08/10/21 03:45 MCV 87.4 fl (80-94) 08/10/21 03:45 MCH 28.8 pg (28.0-34.0) 08/10/21 03:45 MCHC 32.9 g/dL (30.0-36.0) 08/10/21 03:45 RDW 12.7 % (12.1-15.1) 08/10/21 03:45 Plt Count 195 10^3/cmm (130-400) 08/10/21 03:45 MPV 11.0 fL (7.4-10.4) H 08/10/21 03:45 Neut % (Auto) 86.9 % 08/10/21 03:45 Lymph % (Auto) 7.5 % 08/10/21 03:45 [place] % (Auto) 4.9 % 08/10/21 03:45 Eos % (Auto) 0.1 % 08/10/21 03:45 Baso % (Auto) 0.2 % 08/10/21 03:45 Neut # (Auto) 9.87 10^3/uL (1.8-7.7) H 08/10/21 03:45 Lymph # (Auto) 0.9 10^3/uL (0.8-4.8) 08/10/21 03:45 [place] # (Auto) 0.6 10^3/uL (0.2-0.9) 08/10/21 03:45 Eos # (Auto) 0.0 10^3/uL (0.0-0.8) 08/10/21 03:45 Baso # (Auto) 0.0 10^3/uL (0.0-0.1) 08/10/21 03:45 Nucleated RBC % (auto) 0 % 08/10/21 03:45 Nucleated RBCs # 0.0 /100WBC 08/10/21 03:45 D-Dimer 0.29 ug/mIFEU (0-0.59) 08/09/21 17:30 Sodium 137 mmol/L (136-145) 08/10/21 03:45 Potassium 4.0 mmol/L (3.5-5.1) 08/10/21 03:45 Chloride 104 mmol/L (98-107) 08/10/21 03:45 Carbon Dioxide 22 mmol/L (22-29) 08/10/21 03:45 Anion Gap 15.0 (5-19) 08/10/21 03:45 BUN 24 mg/dL (6-20) H 08/10/21 03:45 Creatinine 1.0 mg/dL (0.7-1.2) 08/10/21 03:45 GFR Calculation 77.0 mL/min (90-130) L 08/10/21 03:45 Glucose 209 mg/dL (65-115) H 08/10/21 03:45 Estimat Average Glucose 180 08/09/21 17:30 Hemoglobin A1c 7.9 % (4.0-6.0) H 08/09/21 17:30 Calculated Osmolality 294 mOsm/kg (285-295) 08/10/21 03:45 Lactic Acid 1.8 mmol/L (0.5-2.2) 08/09/21 23:18 Calcium 8.3 mg/dL (8.5-10.5) L 08/10/21 03:45 Total Bilirubin 0.6 mg/dL (0.15-1.2) 08/10/21 03:45 AST 19 U/L (0-40) 08/10/21 03:45 ALT 23 U/L (0-41) 08/10/21 03:45 Alkaline Phosphatase 37 IU/L (40-130) L 08/10/21 03:45 Creatine Kinase 217 U/L (39-308) 08/09/21 23:18 Troponin T Baseline 9 ng/L (0-15) 08/09/21 17:30 Troponin T 120 Minute 15.22 ng/L (0-15) H 08/09/21 20:50 Delta Troponin T 6.22 ABS# (0-10) 08/09/21 20:50 Troponin T Hi Sens 6Hr 23.89 ng/L (0-15) H 08/09/21 23:18 Troponin T Hi Sens 6Hr Delta 14.89 ng/L (0-12) H* 08/09/21 23:18 Total Protein 6.3 g/dL (6.6-8.7) L 08/10/21 03:45 Albumin 3.4 g/dL (3.5-5.2) L 08/10/21 03:45 Globulin 2.9 g/dL (1.3-4.6) 08/10/21 03:45 Lipase 48 U/L (13-60) 08/09/21 17:30 Urine Color Yellow (Yellow) 08/09/21 18:51 Urine Appearance Clear (CLEAR) 08/09/21 18:51 Urine pH 5 (5-7) 08/09/21 18:51 Ur Specific [place] 1.020 (1.005-1.030) 08/09/21 18:51 Urine Protein Neg (Negative) 08/09/21 18:51 Urine Glucose (UA) 4+ (Normal) H 08/09/21 18:51 Urine Ketones 1+ (Negative) H 08/09/21 18:51 Urine Blood Neg (Negative) 08/09/21 18:51 Urine Nitrate Negative (Negative) 08/09/21 18:51 Urine Bilirubin Neg (Negative) 08/09/21 18:51 Urine Urobilinogen Norm mg/dL (Negative) 08/09/21 18:51 Ur Leukocyte Esterase Negative (Negative) 08/09/21 18:51 Nasal Influ A H1 2009 PCR Not detected (NOT DETECT) 08/09/21 17:52 Serum Ketones Negative (Negative) 08/09/21 23:18 Coronavirus 229E (PCR) Not detected (NOT DETECT) 08/09/21 17:52 Influenza A (H1) PCR Not detected (NOT DETECT) 08/09/21 17:52 Influenza A (H3) PCR Not detected (NOT DETECT) 08/09/21 17:52 Influenza Type A (PCR) Not detected (NOT DETECT) 08/09/21 17:52 Influenza Type B (PCR) Not detected (NOT DETECT) 08/09/21 17:52 SARS-CoV-2 (PCR) Not detected (NOT DETECT) 08/09/21 17:52 Vitals Last Vital Signs Temp 98.1 F 08/10/21 07:08 Pulse 90 08/10/21 07:08 Resp 10 L 08/10/21 07:08 BP 99/73 08/10/21 07:08 Pulse Ox 94 08/10/21 07:08 Discharge Plan Discharge Patient Disposition: Home Condition: Stable Prescriptions: New metformin 1,000 mg tablet 500 mg PO BID Qty: 60 1RF Continued glimepiride 2 mg tablet 2 mg PO BID 0RF pantoprazole 40 mg tablet,delayed release (DR/EC) 40 mg PO DAILY 0RF nitroglycerin 0.4 mg tablet, sublingual 0.4 mg sublingual Q5MIN PRN (Reason: Chest Pain) 0RF Rx Instructions: DISSOLVE ONE TABLET UNDER THE TONGUE EVERY 5 MIN NEEDED FOR CHEST PAIN rosuvastatin 10 mg tablet 10 mg PO DAILY 0RF Vitamin C 1,000 mg Tablet 500 mg PO BID 0RF Vitamin B-1 250 mg Tablet 250 mg PO DAILY 0RF zinc 50 mg Tablet 50 mg PO DAILY 0RF multivitamin with iron-mineral Tablet 1 tab PO DAILY 0RF Vitamin D3 25 mcg (1,000 unit) Capsule 25 mcg PO DAILY 0RF Held valsartan 160 mg tablet 160 mg PO DAILY 0RF Hold Instructions: Resume on 08/13/21. aspirin 81 mg Tablet,Delayed Release (Dr/Ec) 81 mg PO DAILY 0RF Hold Instructions: Resume on 08/13/21. Discontinued sulindac 200 mg tablet 200 mg PO BID 0RF Discharge Diet: Cardiac Discharge Activity: Increase activity as tolerated Patient Instructions: Sepsis (DC), Weakness (DC), Chest Pain Stoplight, Opioid Safety Discharge Attestations Time Spent in Discharge Care*: less than 30 min Quality Metrics Clinical Quality Measures [ No reported AMI, CVA or VTE this stay] Coding Level of Care Code Acute Chg FW DC note Diagnoses Sepsis A41.9 Gastroenteritis K52.9 Chest pain R07.9 Troponin level elevated R77.8 Ketonuria R82.4 NSAID long-term use Z79.1
[2021-08-10 11:35] LABS: Glucose Point of Care 174 mg/dL (70-110)
--- NOTE | 2021-08-10 14:43 | PC.NURSE ---
Discharge Note Patient discharged to home via private vehicle accompanied by powder truck driver. All lines removed. Discharge instructions reviewed with patient and/or medical collections representative. Patient verbalized that he will be following up with his primary care physician when he returns home. Mobile pharmacy medications and/or prescriptions provided. Belongings/home medications returned.
== END 2021-08-10 12:30 | disposition home or self-care (01) ==
LOC: ER 08-10 01:03 → CSU 08-10 05:55
PROVIDERS: Emergency Medicine; Admitting Provider Internal Medicine; Emergency Provider Emergency Medicine; Visit Provider Internal Medicine
DX: A41.9 Sepsis, unspecified organism (principal); K52.9 Noninfective gastroenteritis and colitis, unspecified; R07.9 Chest pain, unspecified; R77.8 Other specified abnormalities of plasma proteins; R82.4 Acetonuria; Z79.1 Long term (current) use of non-steroidal anti-inflammatories (NSAID); E11.9 Type 2 diabetes mellitus without complications; Z95.5 Presence of coronary angioplasty implant and graft
CPT/HCPCS: 36415; 36416; 71045; 71046; 74177; 80053; 81003; 82009; 82550; 82962; 83036; 83605; 83690; 84484; 85025; 85378; 87040; 87631; 87635; 93005; 96361; 96365; 96366; 96367; 96375; 99285; C8929; C9113; G0378; J0744; J1650; J2405; J7030; Q9956; Q9967; S0030